=== PATIENT | male | born 2000 | race Two or more races ===

== ENCOUNTER 2025-02-07 22:21 | Emergency (ER) | payer MEDICAID ==
[~2025-02-07] VITALS: Ht 172.7 cm; Wt 97.5 kg
[2025-02-08 00:09] LABS: PLATELET COUNT (AUTO) 271 K/uL (152-348); RED BLOOD CELL COUNT(AUTO) 4.92 MIL/uL (4.06-5.63); RED CELL DISTRIBUTION WIDTH 12.5 % (12.1-16.2); WHITE BLOOD COUNT (AUTO) 11.3 K/uL (3.6-10.2)
[2025-02-08 00:17] LABS: CREATININE 1.1 mg/dL (0.6-1.3); SODIUM SERUM 142 mmol/L (136-145); UREA NITROGEN, BLOOD 17 mg/dL (7-18)
[2025-02-08 00:20] LABS: ETHANOL < 3 MG/DL (0-10)
[2025-02-08 00:23] LABS: ASPARTATE AMINOTRANSFERASE 18 U/L (15-37); TOTAL PROTEIN, SERUM 7.7 g/dL (6.4-8.2)
[2025-02-08 05:43] LABS: *BILIRUBIN,URIN NEGATIVE (NEGATIVE); *BLOOD, URINE NEGATIVE (NEGATIVE); *CLARITY,URINE CLEAR (CLEAR); *COLOR,URINE YELLOW (YELLOW); *KETONES,URINE NEGATIVE (NEGATIVE); *PROTEIN,URINE NEGATIVE (NEGATIVE); *UROBILINOGEN,URINE 0.2 E.U./dl (NORMAL); LEUKOCYTE ESTERASE ,URINE NEGATIVE (NEGATIVE); NITRITE, URINE NEGATIVE (NEGATIVE); UGLUCOSE NEGATIVE (NEGATIVE)
[2025-02-08 05:57] LABS: *AMPHETAMINE, URINE NEGATIVE (NEGATIVE); *BARBITURATE, URINE NEGATIVE (NEGATIVE); *BENZODIAZEPINE, URINE NEGATIVE (NEGATIVE); *CANNABINOID, URINE NEGATIVE (NEGATIVE); *COCCAINE, URINE NEGATIVE (NEGATIVE); *OPIATE, URINE POSITIVE (NEGATIVE); *PHENCYCLIDINE SCREEN,URINE NEGATIVE (NEGATIVE); FENTANYL, URINE NEGATIVE (NEGATIVE)
[2025-02-08 07:55] VITALS: BP 133/83
[2025-02-08 10:40] VITALS: BP 135/79; O2SAT 99
== END 2025-02-08 10:43 | disposition home or self-care (01) ==
LOC: ER 22:24
DX: T48.3X1A Poisoning by antitussives, accidental (unintentional), initial encounter (principal); F17.290 Nicotine dependence, other tobacco product, uncomplicated; Z20.822 Contact with and (suspected) exposure to COVID-19; Z79.899 Other long term (current) drug therapy; Z86.2 Personal history of diseases of the blood and blood-forming organs and certain disorders involving the immune mechanism; Y92.9 Unspecified place or not applicable
CPT/HCPCS: 36415; 84484; 85025; 85730; A4606; A4663; G0480

== ENCOUNTER 2025-02-10 20:50 | Inpatient (IN) | payer BC, MEDICAID ==
[~2025-02-10] VITALS: Ht 172.7 cm; Wt 97.5 kg
[2025-02-10] MEDS ORDERED: LORA2TAB95 PO (21:23)
[2025-02-10] MEDS ORDERED: PHEN64.8 PO (21:23)
[2025-02-10] MEDS ORDERED: GABA300C PO (21:23)
[2025-02-10 23:41] LABS: PLATELET COUNT (AUTO) 251 K/uL (152-348); RED BLOOD CELL COUNT(AUTO) 4.96 MIL/uL (4.06-5.63); RED CELL DISTRIBUTION WIDTH 12.5 % (12.1-16.2); WHITE BLOOD COUNT (AUTO) 8.1 K/uL (3.6-10.2)
[2025-02-10 23:48] LABS: CREATININE 1.1 mg/dL (0.6-1.3); SODIUM SERUM 142 mmol/L (136-145); UREA NITROGEN, BLOOD 8 mg/dL (7-18)
[2025-02-10 23:54] LABS: ASPARTATE AMINOTRANSFERASE 25 U/L (15-37); ETHANOL 13.0 MG/DL (0-10); TOTAL PROTEIN, SERUM 7.5 g/dL (6.4-8.2)
[2025-02-11 00:05] LABS: *BILIRUBIN,URIN NEGATIVE (NEGATIVE); *BLOOD, URINE NEGATIVE (NEGATIVE); *CLARITY,URINE CLEAR (CLEAR); *COLOR,URINE YELLOW (YELLOW); *KETONES,URINE TRACE (NEGATIVE); *PROTEIN,URINE TRACE (NEGATIVE); *UROBILINOGEN,URINE 0.2 E.U./dl (NORMAL); LEUKOCYTE ESTERASE ,URINE NEGATIVE (NEGATIVE); NITRITE, URINE NEGATIVE (NEGATIVE); UGLUCOSE NEGATIVE (NEGATIVE)
[2025-02-11 00:14] LABS: *AMPHETAMINE, URINE NEGATIVE (NEGATIVE); *BARBITURATE, URINE POSITIVE (NEGATIVE); *BENZODIAZEPINE, URINE NEGATIVE (NEGATIVE); *CANNABINOID, URINE NEGATIVE (NEGATIVE); *COCCAINE, URINE NEGATIVE (NEGATIVE); *OPIATE, URINE POSITIVE (NEGATIVE); *PHENCYCLIDINE SCREEN,URINE NEGATIVE (NEGATIVE); FENTANYL, URINE NEGATIVE (NEGATIVE)
[2025-02-11] MEDS: IV NS 1000 ML 1,000 ML IV ONE ×2 (01:00→03:10)
[2025-02-11] MEDS ORDERED: NICOTINE 21 MG/24HR PATCH TD ONE (12:05)
[2025-02-11] MEDS ORDERED: diphenhydrAMINE 50 MG/1 ML VIAL ONE (12:05)
[2025-02-11] MEDS ORDERED: HALOPERIDOL LACTATE 5 MG/1 ML VIAL ONE (12:06)
[2025-02-11] MEDS: NICOTINE 21 MG/24HR PATCH TD SCH (12:13)
[2025-02-11] MEDS: diphenhydrAMINE 50 MG/1 ML VIAL IM ONE (12:14)
[2025-02-11] MEDS: HALOPERIDOL LACTATE 5 MG/1 ML VIAL IM ONE (12:14)
[2025-02-11 13:56] VITALS: BP 149/81
[2025-02-11 15:32] VITALS: BP_SYST 71; TEMP 98.2; O2SAT 97
[2025-02-11] MEDS: GABAPENTIN 300 MG CAPSULE PO SCH (19:40)
[2025-02-11 19:47] VITALS: BP 145/80; TEMP 98.5; O2SAT 98
[2025-02-11] MEDS ORDERED: ONDANSETRON 4 MG/2 ML VIAL IV PRN (20:45)
[2025-02-11] MEDS ORDERED: ACETAMINOPHEN 325 MG TABLET PO PRN (20:45)
[2025-02-11] MEDS: HALOPERIDOL LACTATE 5 MG/1 ML VIAL IM PRN (21:08)
[2025-02-12 06:38] VITALS: BP 127/77; TEMP 97.7; O2SAT 97
[2025-02-12 06:59] LABS: PLATELET COUNT (AUTO) 231 K/uL (152-348); RED BLOOD CELL COUNT(AUTO) 5.07 MIL/uL (4.06-5.63); RED CELL DISTRIBUTION WIDTH 12.8 % (12.1-16.2); WHITE BLOOD COUNT (AUTO) 11.2 K/uL (3.6-10.2)
[2025-02-12 07:18] VITALS: BP 136/77; TEMP 98.6; O2SAT 98
[2025-02-12 07:19] LABS: ASPARTATE AMINOTRANSFERASE 36.0 U/L (15-37); CREATININE 1.0 mg/dL (0.6-1.3); SODIUM SERUM 141.0 mmol/L (136-145); TOTAL PROTEIN, SERUM 7.5 g/dL (6.4-8.2); UREA NITROGEN, BLOOD 12.0 mg/dL (7-18)
[2025-02-12] MEDS: PHENOBARBITAL 32.4 MG TABLET PO SCH (09:33)
[2025-02-12] MEDS: IV 1/2NS 1000 ML 1,000 ML IV PRN (11:58)
[2025-02-12] MEDS ORDERED: OXCA300T15 PO (12:50)
[2025-02-12] MEDS ORDERED: GUAN2TAB19 PO (12:50)
[2025-02-12] MEDS ORDERED: MEMA10TA56 PO (12:51)
[2025-02-12] MEDS ORDERED: HYDR-501 PO (12:52)
[2025-02-12] MEDS ORDERED: CLON0.1T PO (12:53)
[2025-02-12 17:00] VITALS: BP 145/85; TEMP 98.4; O2SAT 98
[2025-02-12 19:39] VITALS: BP 149/88; TEMP 98.8; O2SAT 97
[2025-02-12] MEDS: ZOLPIDEM 5 MG TABLET PO SCH (22:24)
[2025-02-13 06:33] VITALS: BP 140/90; TEMP 98.5; O2SAT 97
[2025-02-13] MEDS: TAMSULOSIN HCL 0.4 MG CAP.SR.24H PO ONE (09:42)
[2025-02-13 09:55] VITALS: BP 156/90; TEMP 98.7; O2SAT 98
== END 2025-02-13 10:20 | disposition other institution (70) | DRG 917 ==
LOC: ER 20:50 → MEDSURG3 02-11 14:34
PROVIDERS: ADMIT Internal Medicine; ATTEND Internal Medicine
DX: T48.3X1A Poisoning by antitussives, accidental (unintentional), initial encounter (principal); G92.8 Other toxic encephalopathy; F84.0 Autistic disorder; M62.82 Rhabdomyolysis; F10.10 Alcohol abuse, uncomplicated; F19.10 Other psychoactive substance abuse, uncomplicated; Y90.0 Blood alcohol level of less than 20 mg/100 ml; Y92.89 Other specified places as the place of occurrence of the external cause; F17.290 Nicotine dependence, other tobacco product, uncomplicated; E66.9 Obesity, unspecified; Z91.199 Patient's noncompliance with other medical treatment and regimen due to unspecified reason; Z78.1 Physical restraint status; R26.81 Unsteadiness on feet; R73.9 Hyperglycemia, unspecified; Z68.32 Body mass index [BMI] 32.0-32.9, adult; Z79.899 Other long term (current) drug therapy; Z91.81 History of falling
CPT/HCPCS: 36415; 83735; 84100; 85025; A4606; A4663; C1758; G0378; G0480; J1200; J1630; J7040